=== PATIENT | male | born 1990 | race Two or more races ===

== ENCOUNTER 2018-01-12 02:12 | Emergency (ER) | payer BC ==
[2018-01-12 02:42] VITALS: BP 134/76; PULSE 82; TEMP 97.7; BMI 22.6
--- NOTE | 2018-01-12 03:22 | PDOC ---
History of Present Illness - General Chief Complaint: Chest Pain Stated Complaint: FLU LIKE SYMPTOMS Time Seen by Provider: 01/12/18 03:11 History Source: Patient - History of Present Illness Initial Comments: 01/12/18 04:13 27 year old male with flu like symptoms for 3 days with cough and nasal congestion. patient ALSO REPORTS INtermittent chest pain on and off for 6 years. denies NV, dizziness, diaphoresis, headache, fever/ chills. Past History - Past Medical History Allergies/Adverse Reactions: Allergies Allergy/AdvReac Type Severity Reaction Status Date / Time No Known Allergies Allergy Verified 06/01/16 00:02 Home Medications: Ambulatory Orders Guaifenesin Dm [Robitussin Dm -] 10 ml PO Q6H PRN #20 cup 01/12/18 COPD: No - Immunization History Immunization Up to Date: Yes - Suicide/Smoking/Psychosocial Hx Smoking History: Never smoked Have you smoked in the past 12 months: No Information on smoking cessation initiated: No Hx Alcohol Use: No Drug/Substance Use Hx: No Substance Use Type: None *Physical Exam - Vital Signs Last Vital Signs Temp Pulse Resp BP Pulse Ox 97.7 F 82 18 134/76 98 01/12/18 02:40 01/12/18 02:40 01/12/18 02:40 01/12/18 02:40 01/12/18 02:40 *DC/Admit/Observation/Transfer Diagnosis at time of Disposition: URI (upper respiratory infection) Qualifiers: URI type: unspecified viral URI Qualified Code(s): J06.9 - Acute upper respiratory infection, unspecified - Prescriptions Prescriptions: Guaifenesin Dm [Robitussin Dm -] 10 ml PO Q6H PRN #20 cup PRN Reason: Cough - Referrals - Patient Instructions Printed Discharge Instructions: Common Cold Additional Instructions: drink plenty of fluids take cough medicine as prescribed. take tylenol every 6 hours as needed for pain follow up with your doctor as soon as possible. - Post Discharge Activity Forms/Work/School Notes: Back to Work
--- NOTE | 2018-01-12 03:55 | PDOC ---
*Physical Exam - Vital Signs Last Vital Signs Temp Pulse Resp BP Pulse Ox 97.7 F 82 18 134/76 98 01/12/18 02:40 01/12/18 02:40 01/12/18 02:40 01/12/18 02:40 01/12/18 02:40 Medical Decision Making - Medical Decision Making 01/12/18 03:51 Mr Funez presents to the ER with a complaint of chest pain His symptoms have been present for approximately 6 years Are intermittent Associated with chest extension No chest wall trauma Pt mother recently diagnosed with the flu Has had URI symptoms for approximately 3 days EKG:SR, rate of 70 bpm, axis nml, intervals nml, no st elevations or depressions Pt seen by Midlevel Provider under my direct supervision Ancillary studies reviewed CXR: negative I agree with plan as outlined by Midlevel Provider *DC/Admit/Observation/Transfer Diagnosis at time of Disposition: URI (upper respiratory infection) - Discharge Dispostion Disposition: HOME Condition at time of disposition: Good - Prescriptions Prescriptions: Guaifenesin Dm [Robitussin Dm -] 10 ml PO Q6H PRN #20 cup PRN Reason: Cough - Referrals - Patient Instructions Printed Discharge Instructions: Common Cold Additional Instructions: drink plenty of fluids take cough medicine as prescribed. take tylenol every 6 hours as needed for pain follow up with your doctor as soon as possible. - Post Discharge Activity Forms/Work/School Notes: Back to Work
--- NOTE | 2018-01-12 16:59 | EKG ---
Test Reason : Blood Pressure : / mmHG Vent. Rate : 070 BPM Atrial Rate : 070 BPM P-R Int : 136 ms QRS Dur : 088 ms QT Int : 360 ms P-R-T Axes : 055 040 018 degrees QTc Int : 388 ms NORMAL SINUS RHYTHM NORMAL ECG NO PREVIOUS ECGS AVAILABLE Confirmed by MD Gurjit, Ubaldo ([id number]) on 01/12/2018 4:59:11 PM Referred By: Confirmed By:Ubaldo Cagle MD
== END 2018-01-12 04:45 | disposition home or self-care (01) ==
LOC: JER 02:12
DX: J06.9 Acute upper respiratory infection, unspecified (principal)
CPT/HCPCS: 71046-TC-FY; 93005; 93010; 99282-25